=== PATIENT | female | born 1980 ===

== ENCOUNTER 2024-05-16 06:07 | Day surgery (SDC) | payer BC, SELFPAY ==
[2024-05-16] VITALS (9 sets, daily range): BP systolic 114–156; BP diastolic 58–88
[2024-05-16] MEDS: NORMOSOL-R 1000 IV (07:10)
[2024-05-16] MEDS: DILAUDID 0.25 MG IV (08:31)
[2024-05-16] MEDS: MOTRIN 600 MG PO (09:11)
== END 2024-05-16 09:35 | disposition home or self-care (01) ==
LOC: SDS 06:07
PROVIDERS: ATTENDING PHYSICIAN Orthopaedic Surgery Hand Surgery
DX: G56.02 Carpal tunnel syndrome, left upper limb (principal)
CPT/HCPCS: 64721